=== PATIENT | female | born 1980 | race Caucasian/White ===

== ENCOUNTER 2021-07-12 16:38 | Emergency (ER) | payer SELFPAY ==
[~2021-07-12] VITALS: Ht 162.6 cm; Wt 84.8 kg
[2021-07-12 16:44] VITALS: BP 146/113
--- NOTE | 2021-07-12 16:55 | NUR ---
41 Y/O F TOBED WALKED TO BED 4 REFERRED FROM [facility] . BP AT CLINIC 178/123 AND [facility] 6. C/O HEADACHE, DIZZINESS, NAUSEA , MELENA X 5 DAYS. COVID TESTED POSITVE 06/02/21 AND NEGATIVE 06/29/21. PMH: ANEMIA, HTN, PUD
[2021-07-12] MEDS ORDERED: PANTOPRAZOLE 40 MG INJ VIAL IVP ONE (17:35)
[2021-07-12] MEDS ORDERED: ONDANSETRON 4 MG/2 ML VIAL IVP ONE (17:35)
[2021-07-12] MEDS ORDERED: NACL 0.9% 1,000 ML IV SCH (17:35)
[2021-07-12] MEDS ORDERED: METOCLOPRAMIDE 10 MG/2 ML INJ VIAL IVP ONE (17:40)
[2021-07-12] MEDS ORDERED: diphenhydrAMINE 50 MG/ML VIAL IVP ONE (17:40)
[2021-07-12] MEDS ORDERED: ACETAMINOPHEN EXTRA STRENGTH 500 MG TAB PO ONE (17:40)
[2021-07-12 18:27] LABS: APPEARANCE,URINE CLEAR (CLEAR); BILIRUBIN,URINE NEGATIVE (NEGATIVE); BLOOD, URINE TRACE-I (NEGATIVE); COLOR,URINE YELLOW (YELLOW); LEUKOCYTE ESTERASE ,URINE NEGATIVE (NEGATIVE); NITRITE, URINE NEGATIVE (NEGATIVE); UGLUCOSE NEGATIVE (NEGATIVE)
[2021-07-12 18:39] LABS: ALBUMIN 3.6 g/dL (3.4-5.0); ANION GAP 9.4 (8-16); CARBON DIOXIDE 28.8 mmol/L (21-32); CREATININE 0.7 mg/dL (0.6-1.3); POTASSIUM 3.2 mmol/L (3.5-5.1); TOTAL BILIRUBIN 0.4 mg/dL (0.0-1.0)
[2021-07-12] MEDS ORDERED: SODIUM PHOS / POTASSIUM PHOS 1 PKT PDR PO ONE (19:00)
[2021-07-12 19:03] LABS: BASOPHILS # (AUTO) 0.1 K/uL (0.00-0.22); BASOPHILS % (AUTO) 0.9 % (0.0-2.0); EOSINOPHILS # (AUTO) 0.2 K/uL (0-0.4); EOSINOPHILS % (AUTO) 2.6 % (0.0-4.0); HEMATOCRIT 37.2 % (36-48); HEMOGLOBIN 11.9 g/dL (12.0-16.0); LYMPHOCYTES # (AUTO) 2.5 K/uL (2.5-16.5); LYMPHOCYTES % (AUTO) 28.8 % (20.5-51.1); MEAN CORPUSCULAR HEMOGLOBIN 24 pg (27-31); MEAN CORPUSCULAR HGB CONC 32 g/dL (33-37); MEAN CORPUSCULAR VOLUME 73.9 fL (80-94); MONOCYTES # (AUTO) 0.6 K/uL (0.8-1.0); NEUTROPHILS # (AUTO) 5.2 K/uL (1.8-7.7); NEUTROPHILS % (AUTO) 60.7 % (42.2-75.2); PLATELET COUNT (AUTO) 153 K/uL (140-450); RED BLOOD CELL COUNT(AUTO) 5.03 MIL/uL (4.20-5.40); RED CELL DISTRIBUTION WIDTH 18.1 % (11.6-13.7); WHITE BLOOD COUNT (AUTO) 8.5 K/uL (4.8-10.8)
--- NOTE | 2021-07-12 19:30 | NUR ---
REPORT GIVEN TO JUAN LUIS PRADO
[2021-07-12] MEDS ORDERED: PANT40EC PO (19:32)
[2021-07-12] MEDS ORDERED: ACET-10509 PO (19:33)
[2021-07-12] MEDS ORDERED: POTA10TA70 PO (19:34)
--- NOTE | 2021-07-12 19:45 | NUR ---
IV removed, catheter intact and site benign. Applied folded 4x4 gauze and tape to stop bleeding.
[2021-07-12 20:03] VITALS: BP 152/100
--- NOTE | 2021-07-12 20:04 | NUR ---
Patient discharged with v/s stable. Written and verbal after care instructions given and explained. Patient alert, oriented and verbalized understanding of instructions. Ambulatory with steady gait. All questions addressed prior to discharge. ID band removed. Patient advised to follow up with PMD. Rx of IBUPROFEN, POTASSIUM CHLORIDE, AND TYLENOL given. Patient educated on indication of medication including possible reaction and side effects. Opportunity to ask questions provided and answered.
[2021-07-12 22:20] LABS: RBC,URINE 0-5 /HPF (0-5); WBC,URINE 0-5 /HPF (0-5)
== END 2021-07-12 20:04 | disposition home or self-care (01) ==
LOC: MED 16:38
DX: G44.209 Tension-type headache, unspecified, not intractable (principal); E87.6 Hypokalemia; D64.9 Anemia, unspecified; I10 Essential (primary) hypertension; Z79.899 Other long term (current) drug therapy
CPT/HCPCS: 36415; 71045; 80053; 81001; 81025; 85025; 85610; 85730; 86886; 86900; 86901; 86920; 87086; 93005; 99285; C9113; J1200; J2765; J7030; Q0092